=== PATIENT | female | born 1975 | race Caucasian/White ===

== ENCOUNTER 2017-10-16 17:39 | Emergency (ER) | payer OTHER, SELFPAY ==
[2017-10-16 18:02] VITALS: PULSE 110; RESP 22; TEMP 36.9; O2SAT 97; BMI 37.5
--- NOTE | 2017-10-16 18:08 | HMH.EDUTC ---
[facility] [place] Disposition Clinical Impression: Influenza Disposition: Home, Self-Care Condition on Discharge: Good Instructions: Influenza, DI for Cough -- Adult, DI for Fever (Symptom) -- Adult Additional Instructions: ? Start Tamiflu today if you are going to take it. Discussed risk and possible benefits. ? ? Lots of rest ? Increase Fluids water, Gatorade, powerade, pedialyte,if /toddler/child ? Alternate Tylenol and / or ibuprofen as discussed for fever, aches, chills x 24 hours without medication for symptoms ? Follow up IMMEDIATELY for new or worsening Symptoms OR no noticeable improvement over the next 48-72 hours, 911 for difficulty or breathing ? You or your child area contagious until no fever, aches, chills for 24 hours with medication for symptoms Prescriptions: Benzonatate [Tessalon Perle 100mg Cap] 100 mg PO TID #30 cap Dextromethorphan Polistirex [Delsym] 10 mg PO Q12H PRN #300 staci.er.12h PRN Reason: Cough Oseltamivir Phosphate [Tamiflu 75mg Capsule] 75 mg PO BID #10 cap Time of Disposition: 18:16 Medical Decision Making - Medical Records Medical records reviewed: Yes: I reviewed the patient's medical records. Vital Signs: 10/16/17 18:02 Temperature 98.4 F Temperature Source Temporal Artery Scan Pulse Rate [Right] 110 H Respiratory Rate 22 02 Sat by Pulse Oximetry 97 Oxygen Delivery Method Room Air - Kingsley Inquiry Pt receiving controlled substance: No Kingsley was queried for this patient: No [facility] [place] HPI - General Stated complaint: dizzy,cough Mode of Arrival: Ambulatory Source of Information: Patient Limitations: No Limitations Description of Symptoms (Recalled from Triage Doc. by RN): FEVER, COUGH, DIZZY BEGAN YESTERDAY HEENT Symptoms (Recalled from RN notes): Yes Resp Symptoms (Recalled from RN notes): No Skin Symptoms (Recalled from RN notes): No MS Symptoms (Recalled from RN notes): No Functional Status (Recalled from RN notes): N - History of Present Illness Provider Complaint: Patient state that daughter was recently diagnosed with the flu on Friday States that now she has been having fever, sore throat, cough and body aches that started yesterday State that she was worried that she may have the flu so she came in to get checked out - Related Data Previous Rx's Medication Instructions Recorded Benzonatate [Tessalon Perle 100mg 100 mg PO TID #30 cap 10/16/17 Cap] Oseltamivir Phosphate [Tamiflu 75 mg PO BID #10 cap 10/16/17 75mg Capsule] Allergies Allergy/AdvReac Type Severity Reaction Status Date / Time codeine [CODEINE] Allergy Unknown Verified 10/16/17 18:06 hydrocodone [HYDROCODONE] AdvReac Unknown SENSITIVITY Verified 10/16/17 18:06 - Worker's Comp Is this a Worker's Comp case?: No H History I have reviewed the patient's past medical history: Yes - Social History Smoking Status: Current every day smoker Tobacco Type: cigarettes Alcohol Intake: never - Psychiatric History Expresses thoughts of harming self/others: None Suicide Plan Description: No Plan ROS Obtained: Yes All systems reviewed & no additional complaints - Constitutional Constitutional: Reports body ache, Reports chills, Reports fever(s) - ENT Ears, Nose, Mouth, and Throat: Reports nasal congestion, Reports sore throat - Cardiovascular Cardiovascular: Denies chest pain - Respiratory Respiratory: Yes cough, No dyspnea, No coughing up blood - Gastrointestinal Gastrointestingal: Denies: nausea Physical Exam - General General appearance: alert, in no apparent distress - Expanded ENT Exam Comment: Throat raw, irritated drainage noted - Respiratory Respiratory exam: Present: normal lung sounds bilaterally. Absent: respiratory distress - Cardiovascular Cardiovascular exam: Present: tachycardia - Abdominal Exam Abdominal exam: Present: soft, normal bowel sounds. Absent: distention, tenderness, guarding - Neurological Exam Neurological exam: Present: al
--- NOTE | 2017-10-16 18:13 | ED_ITS ---
[facility] [place] Clinical Impression: Influenza Disposition: Home, Self-Care Condition on Discharge: Good Instructions: Influenza, DI for Cough -- Adult, DI for Fever (Symptom) -- Adult Additional Instructions: ? Start Tamiflu today if you are going to take it. Discussed risk and possible benefits. ? ? Lots of rest ? Increase Fluids water, Gatorade, powerade, pedialyte,if /toddler/child ? Alternate Tylenol and / or ibuprofen as discussed for fever, aches, chills x 24 hours without medication for symptoms ? Follow up IMMEDIATELY for new or worsening Symptoms OR no noticeable improvement over the next 48-72 hours, 911 for difficulty or breathing ? You or your child area contagious until no fever, aches, chills for 24 hours with medication for symptoms Prescriptions: Benzonatate [Tessalon Perle 100mg Cap] 100 mg PO TID #30 cap Dextromethorphan Polistirex [Delsym] 10 mg PO Q12H PRN #300 staci.er.12h PRN Reason: Cough Oseltamivir Phosphate [Tamiflu 75mg Capsule] 75 mg PO BID #10 cap Time of Disposition: 18:16 Medical Decision Making - Medical Records Medical records reviewed: Yes: I reviewed the patient's medical records. Vital Signs: 10/16/17 18:02 Temperature 98.4 F Temperature Source Temporal Artery Scan Pulse Rate [Right] 110 H Respiratory Rate 22 02 Sat by Pulse Oximetry 97 Oxygen Delivery Method Room Air - Kingsley Inquiry Pt receiving controlled substance: No Kingsley was queried for this patient: No [facility] [place] HPI - General Stated complaint: dizzy,cough Mode of Arrival: Ambulatory Source of Information: Patient Limitations: No Limitations Description of Symptoms (Recalled from Triage Doc. by RN): FEVER, COUGH, DIZZY BEGAN YESTERDAY HEENT Symptoms (Recalled from RN notes): Yes Resp Symptoms (Recalled from RN notes): No Skin Symptoms (Recalled from RN notes): No MS Symptoms (Recalled from RN notes): No Functional Status (Recalled from RN notes): N - History of Present Illness Provider Complaint: Patient state that daughter was recently diagnosed with the flu on Friday States that now she has been having fever, sore throat, cough and body aches that started yesterday State that she was worried that she may have the flu so she came in to get checked out - Related Data Previous Rx's Medication Instructions Recorded Benzonatate [Tessalon Perle 100mg 100 mg PO TID #30 cap 10/16/17 Cap] Oseltamivir Phosphate [Tamiflu 75 mg PO BID #10 cap 10/16/17 75mg Capsule] Allergies Allergy/AdvReac Type Severity Reaction Status Date / Time codeine [CODEINE] Allergy Unknown Verified 10/16/17 18:06 hydrocodone [HYDROCODONE] AdvReac Unknown SENSITIVITY Verified 10/16/17 18:06 - Worker's Comp Is this a Worker's Comp case?: No [facility] History I have reviewed the patient's past medical history: Yes - Social History Smoking Status: Current every day smoker Tobacco Type: cigarettes Alcohol Intake: never - Psychiatric History Expresses thoughts of harming self/others: None Suicide Plan Description: No Plan ROS Obtained: Yes All systems reviewed & no additional complaints - Constitutional Constitutional: Reports body ache, Reports chills, Reports fever(s) - ENT Ears, Nose, Mouth, and Throat: Reports nasal congestion, Reports sore throat - Cardiovascular Cardiovascular: Denies chest pain - Respirator
[2017-10-16 18:25] VITALS: BP 144/90; PULSE 98; RESP 22; TEMP 36.9
[2017-10-16 18:44] LABS: UTC Influenza A Antigen Negative (Negative); UTC Influenza B Antigen Positive (Negative)
== END 2017-10-16 18:26 | disposition home or self-care (01) ==
PROVIDERS: Emergency Provider Nurse Practitioner; Family Provider Internal Medicine Adolescent Medicine
DX: J11.1 Influenza due to unidentified influenza virus with other respiratory manifestations (principal)
CPT/HCPCS: 87804; 99202

== ENCOUNTER 2017-10-23 13:37 | Emergency (ER) | payer OTHER, SELFPAY ==
--- NOTE | 2017-10-23 13:48 | XR_ITS ---
XR chest 2V HISTORY: ITS.REASON: COUGH AND CHEST CONGESTION ORDERING PHYSICIAN: Navdeep Steward PATIENT AGE: 42 years COMPARISON: [id number] FINDINGS: The cardiomediastinal silhouette and pulmonary vascularity are within normal limits. The lungs are clear without infiltrates, suspicious nodules, or pleural effusions. A partially calcified nodule is present in the right lower lobe at 16 mm consistent with granuloma unchanged No acute bony abnormalities. IMPRESSION: No change with no acute finding
[2017-10-23 13:49] VITALS: BP 146/107; PULSE 99; RESP 20; TEMP 36.6; O2SAT 98; BMI 20.5
--- NOTE | 2017-10-23 14:31 | HMH.EDUTC ---
[facility] [place] Clinical Impression: Influenzal bronchitis, COPD exacerbation, Tobacco abuse Disposition: Home, Self-Care Condition on Discharge: Good Instructions: DI for Acute Bronchitis, How to Quit Tobacco Products Additional Instructions: * STOP SMOKING!!!! * start antibiotic today. Be sure to complete entire prescription even if feeling better. * Monitor Temp. Follow up if fever starts again. * humidifier/vaporizer/hot steamy shower * Ventolin Inhaler every 4-6 hours as needed like we discussed. Should help open airways and improve cough, wheezing, shortness of breath. * Mucinex during the day for your cough and cough suppressant only at night. Be sure to drink lots of water. Insurance may not cover a prescription of mucinex. Might be cheaper to get 400mg tablets and take 2 tablets morning, midday and evening all with lots of water. * Promethazine DM cough syrup will cause drowsiness. Use it only at night. No driving, operating machinery or caring for small children after taking it. * Stop delsym and tessalon perles since not helping. * Start steroid tomorrow since you had injection in clinic. Helps with inflammation therefore, cough and wheezing. Follow directions on package. Rvwd side effects. Pt reports they have taken them before. FOLLOW UP: We have provided you with a list of providers accepting patients. I would encourage you find a new primary care provider and make an appt KUNAL as it can take weeks to get a new patient appointment. In the meantime, follow up in the clinic or ER for new, worsening or no noticeable improvement over the next 48 hours. Prescriptions: Azithromycin [Z-David 250mg Tab] 250 mg PO UD DOSE PK #6 tab predniSONE [Deltasone 10mg tablet] 10 mg PO BID #10 tab Promethazine/Dextromethorphan [Promethazine-Dm Syrup] 5 - 10 ml PO HS PRN #120 ml PRN Reason: Cough Time of Disposition: 15:03 Medical Decision Making Vital Signs: 10/23/17 13:49 Temperature 97.8 F Temperature Source Temporal Artery Scan Pulse Rate [Brachial] 99 H Respiratory Rate 20 Blood Pressure [Right Arm] 146/107 Blood Pressure Mean [Right Arm] 120 Blood Pressure Source [Right Arm] Automatic Cuff Blood Pressure Position [Right Arm] Sitting 02 Sat by Pulse Oximetry 98 Oxygen Delivery Method Room Air Orders (Tests/Meds): ED MEDICATIONS Discontinued Medications Generic Name Dose Route Start Last Admin Trade Name Shahab PRN Reason Stop Dose Admin Albuterol/Ipratropium 3 ml 10/23/17 14:09 Duoneb 3ml Neb IH 10/23/17 14:10 ONCE ONE - Radiology Data #1 Image(s): Chest Image Reviewed: Yes I have reviewed radiologist's interpretation Preliminary Findings: Normal/NAD 1420: Dr. Templeton, ER , olesya. unable to review xray at this time. 1455: Rvwd Radiologist's interpretation. Discussed w/ pt. pt refusing labs. - Kingsley Inquiry Pt receiving controlled substance: No [facility] [place] HPI - General Stated complaint: soa weakness dizzy Time Seen by Provider: 10/23/17 14:15 Mode of Arrival: Ambulatory Source of Information: Patient Limitations: No Limitations Description of Symptoms (Recalled from Triage Doc. by RN): COUGHING, DIZZY AND LIGHT HEADED, DX WITH FLU B 10/16 HEENT Symptoms (Recalled from RN notes): No Resp Symptoms (Recalled from RN notes): Yes Skin Symptoms (Recalled from RN notes): No MS Symptoms (Recalled from RN notes): No Functional Status (Recalled from RN notes): NA - History of Present Illness Provider Complaint: c/o increasing cough and SOA since being diagnosed w/ Flu B one week ago. Was seen in [facility] 10/16 for cough, SOA, aches, dizziness after being exposed to flu. Dx Flu B. Started on tamiflu, Delsym and tessalon perles. Cough, SOA and dizziness have continued to get worse. Dizziness primarily associated with cough. No fevers. Aches, chills resolved. Drinking well. PMHx COPD. Continues to smoke. Symbicort daily and needing ventolin 4-6 times/day. Cough worse at night. Daughter th
[2017-10-23 15:14] VITALS: BP 129/77; PULSE 89; RESP 20; TEMP 36.6; O2SAT 98
== END 2017-10-23 15:16 | disposition home or self-care (01) ==
PROVIDERS: Emergency Provider Nurse Practitioner Family; Family Provider Internal Medicine Adolescent Medicine; PCP Internal Medicine Adolescent Medicine
DX: J11.1 Influenza due to unidentified influenza virus with other respiratory manifestations (principal); J44.1 Chronic obstructive pulmonary disease with (acute) exacerbation; I10 Essential (primary) hypertension; Z88.6 Allergy status to analgesic agent
CPT/HCPCS: 71046; 96372; 99202

== ENCOUNTER 2017-11-21 12:37 | Emergency (ER) | payer OTHER, SELFPAY ==
[2017-11-21 12:39] VITALS: BP 133/97; PULSE 102; RESP 20; TEMP 37.4; O2SAT 95; BMI 38.4
--- NOTE | 2017-11-21 12:50 | XR_ITS ---
XR knee LT 3V COMPARISON: Left knee 11/03/2014 HISTORY: Left knee pain TECHNIQUE: AP lateral and oblique views FINDINGS: There is prominent joint space narrowing medially and there is moderate spurring of the medial tibial spine. There is mild narrowing of patellofemoral space. There is no definite fracture or loose body and there is no effusion. IMPRESSION: Prominent degenerative change primarily involving medial joint space with little or no progression from the findings seen on the previous right knee 11/03/2014
--- NOTE | 2017-11-21 14:29 | HMH.EDEXTP ---
ED Disposition Clinical Impression: Chronic pain of left knee Disposition: Home, Self-Care Condition on Discharge: Good Instructions: DI for Chronic Pain -- Adult Additional Instructions: See Dr. Grajeda and Dr. Andres for follow up and management of your chronic pain as well as reevaluation; Rx Naproxen; recommend over the counter velcro knee brace as needed for further stabilization and comfort. 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 The time I documented below is in addition to time spent performing reported procedures but includes the following listed in this critical care notation. Medical Decision Making - Kingsley Inquiry Pt receiving controlled substance: No (not indicated from ED for chronic pain syndrome) Vital Signs: 11/21/17 12:39 Temperature 99.4 F Temperature Source Temporal Artery Scan Pulse Rate [Left Radial] 102 H Respiratory Rate 20 Blood Pressure [Left Arm] 133/97 Blood Pressure Mean [Left Arm] 109 02 Sat by Pulse Oximetry 95 Oxygen Delivery Method Room Air - Radiology Data #1 Image(s): Knee Image Reviewed: Yes I have reviewed radiologist's interpretation Preliminary Findings: Normal/NAD (DJD neg acute per radiology) Extremity Problem HPI - General Chief complaint: Extremity Injury, Lower Stated complaint: Left Knee hurting Time Seen by Provider: 11/21/17 13:30 Mode of Arrival: Wheelchair Limitations: Physical Limitations Description of Symptoms (Recalled from ER Triage Doc. by RN): LEft knee pain since this morning. history of arthritis. states doctors have told her she's bone on bone in knee area, but too young for knee replacement. unable to bend knee. - History of Present Illness HPI Narrative: chronic L knee pain, states has no meniscus; pt of Dr. Andres. No acute trauma. Hurts worse today. Didn't take any pain medications. No fever. No calf pain. No neurological sx. Hurts to bend leg or walk. Both knees usually hurt and she has had steroid injections in the past. MD Complaint: extremity pain Consistency: constant Location: left Quality: aching Radiation: none Relieving factors: rest Exacerbating factors: range of motion, walking Associated symptoms: denies other symptoms - Related Data Previous Rx's Medication Instructions Recorded Naproxen [EC-Naprosyn] 500 mg PO BID PRN #20 tablet. 11/21/17 Allergies Allergy/AdvReac Type Severity Reaction Status Date / Time codeine [CODEINE] Allergy Unknown Verified 11/21/17 12:48 hydrocodone [HYDROCODONE] AdvReac Unknown SENSITIVITY Verified 11/21/17 12:48 [facility] History I have reviewed the patient's past medical history: Yes Medical History: Reports:: Chronic Obstructive Pulmonary Disease (COPD), Hypertension ( I dont need medications though ) Denies:: Asthma, Coronary Artery Disease, Diabetes Mellitus Type 1, Diabetes Mellitus Type 2 Other Medical History: Reports: Other (DJD) Other Surgeries: Yes: Appendectomy, Other (knee surg x3, elbow surg, cholecystectomy, ) - Social History Smoking Status: Current every day smoker Tobacco Type: cigarettes # Packs/Day (cigarettes): 1 Alcohol Intake: never - Psychiatric History Expresses thoughts of harming self/others: None Suicide Plan Description: No Plan ROS Obtained: Yes All systems reviewed & no additional complaints Physical Exam - General General appearance: alert, in no apparent distress - Head Head exam: atraumatic - Eye Eye exam: Present: normal appearance - Neck Neck exam: Present: full ROM - Chest Chest inspection: Present: normal inspection - Res
--- NOTE | 2017-11-21 14:32 | ED_ITS ---
ED Disposition Clinical Impression: Chronic pain of left knee Disposition: Home, Self-Care Condition on Discharge: Good Instructions: DI for Chronic Pain -- Adult Additional Instructions: See Dr. Grajeda and Dr. Andres for follow up and management of your chronic pain as well as reevaluation; Rx Naproxen; recommend over the counter velcro knee brace as needed for further stabilization and comfort. 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 The time I documented below is in addition to time spent performing reported procedures but includes the following listed in this critical care notation. Medical Decision Making - Kingsley Inquiry Pt receiving controlled substance: No (not indicated from ED for chronic pain syndrome) Vital Signs: 11/21/17 12:39 Temperature 99.4 F Temperature Source Temporal Artery Scan Pulse Rate [Left Radial] 102 H Respiratory Rate 20 Blood Pressure [Left Arm] 133/97 Blood Pressure Mean [Left Arm] 109 02 Sat by Pulse Oximetry 95 Oxygen Delivery Method Room Air - Radiology Data #1 Image(s): Knee Image Reviewed: Yes I have reviewed radiologist's interpretation Preliminary Findings: Normal/NAD (DJD neg acute per radiology) Extremity Problem HPI - General Chief complaint: Extremity Injury, Lower Stated complaint: Left Knee hurting Time Seen by Provider: 11/21/17 13:30 Mode of Arrival: Wheelchair Limitations: Physical Limitations Description of Symptoms (Recalled from ER Triage Doc. by RN): LEft knee pain since this morning. history of arthritis. states doctors have told her she's bone on bone in knee area, but too young for knee replacement. unable to bend knee. - History of Present Illness HPI Narrative: chronic L knee pain, states has no meniscus; pt of Dr. Andres. No acute trauma. Hurts worse today. Didn't take any pain medications. No fever. No calf pain. No neurological sx. Hurts to bend leg or walk. Both knees usually hurt and she has had steroid injections in the past. MD Complaint: extremity pain Consistency: constant Location: left Quality: aching Radiation: none Relieving factors: rest Exacerbating factors: range of motion, walking Associated symptoms: denies other symptoms - Related Data Previous Rx's Medication Instructions Recorded Naproxen [EC-Naprosyn] 500 mg PO BID PRN #20 tablet. 11/21/17 Allergies Allergy/AdvReac Type Severity Reaction Status Date / Time codeine [CODEINE] Allergy Unknown Verified 11/21/17 12:48 hydrocodone [HYDROCODONE] AdvReac Unknown SENSITIVITY Verified 11/21/17 12:48 [facility] History I have reviewed the patient's past medical history: Yes Medical History: Reports:: Chronic Obstructive Pulmonary Disease (COPD), Hypertension ( I dont need medications though ) Denies:: Asthma, Coronary Artery Disease, Diabetes Mellitus Type 1, Diabetes Mellitus Type 2 Other Medical History: Reports: Other (DJD) Other Surgeries: Yes: Appendectomy, Other (knee surg x3, elbow surg, cholecystectomy, )
[2017-11-21 14:46] VITALS: BP 128/85; PULSE 89; RESP 18; TEMP 36.9; O2SAT 95
== END 2017-11-21 14:46 | disposition home or self-care (01) ==
PROVIDERS: Emergency Provider Emergency Medicine; Family Provider Internal Medicine Adolescent Medicine; PCP Internal Medicine Adolescent Medicine
DX: M25.562 Pain in left knee (principal); J44.9 Chronic obstructive pulmonary disease, unspecified; I10 Essential (primary) hypertension; F17.210 Nicotine dependence, cigarettes, uncomplicated; Z88.6 Allergy status to analgesic agent
CPT/HCPCS: 73562; 99282